=== PATIENT | female | born 1990 | race Caucasian/White ===

== ENCOUNTER 2017-10-07 11:13 | Emergency (ER) | END 2017-10-07 15:12 | disposition home or self-care (01) ==

== ENCOUNTER 2018-05-30 16:02 | Emergency (ER) | END 2018-05-30 19:18 | disposition home or self-care (01) ==

== ENCOUNTER 2018-08-28 09:47 | Outpatient (CLI) | END 2018-08-28 11:40 | disposition home or self-care (01) ==

== ENCOUNTER 2019-01-03 05:55 | Inpatient (IN) | payer OTHER ==
[2019-01-03] VITALS (9 sets, daily range): BP systolic 90–125; BP diastolic 46–64; PULSE 54–77; RESP 16–20; Ht 170.2 cm; Wt 122.3 kg
[~2019-01-03] VITALS: Ht 170.2 cm; Wt 122.3 kg
[~2019-01-03 05:55] MED LIST: CYCL10TA7 PO; IBUP-1542 PO; IBUP800T48 PO
[2019-01-03] MEDS ORDERED: LACTATED RINGER'S 1,000 ML IV SCH (06:06)
[2019-01-03] MEDS ORDERED: PREN-93 PO (06:11)
[2019-01-03] MEDS ORDERED: CEFAZOLIN 3 GM in DEXTROSE 5% 100 ML IV SCH (06:30)
[2019-01-03] MEDS ORDERED: MISOPROSTOL 200 MCG TAB PR PRN ×2 (06:30→13:00)
[2019-01-03] MEDS ORDERED: CARBOPROST 250 MCG INJ IM PRN ×2 (06:30→13:00)
[2019-01-03] MEDS ORDERED: OXYTOCIN 30 UNITS/LR 500 ML IV PRN ×2 (06:30→13:00)
[2019-01-03] MEDS ORDERED: METHYLERGONOVINE 0.2 MG INJ IM PRN ×2 (06:30→13:00)
[2019-01-03] MEDS ORDERED: OXYTOCIN 30 UNITS/LR 500 ML IV SCH ×2 (06:30→12:35)
--- NOTE | 2019-01-03 08:38 | PREAC ---
Date/Time of Note Date/Time of Note DATE: 01/03/19 TIME: 08:36 Anesthesia Eval and Record Evaluation Time Pre-Procedure Interview DATE: 01/03/19 TIME: 08:36 Age 28 Sex female NPO: 8 hrs Preoperative diagnosis iup at 39 weeks Planned procedure repeat c section Past Medical History Past Medical History: Includes GI: Obesity Heme: Anemia Surgery & Anesthesia Issues No known issue Meds Anticoagulation: No Beta Gilbert within 24 hr: No Reason Beta Gilbert not given: Pt. not on B-Gilbert Active Scripts Ibuprofen* (Motrin*) 600 Mg Tab, 600 MG PO Q6, #20 TAB Prov:SINTIA TAVARES PA-C 10/07/17 Cyclobenzaprine Hcl* (Cyclobenzaprine Hcl*) 10 Mg Tablet, 10 MG PO TID, #15 TAB Prov:ROCIO AHMADI PA-C 06/15/16 Ibuprofen* (Motrin*) 800 Mg Tab, 800 MG PO Q6, #30 TAB take with food Prov:ROCIO AHMADI PA-C 06/15/16 Reported Medications Vit No.124/Iron/FA ( Vitamin Tablet) 1 Each Tablet, 1 EACH PO, TAB 01/03/19 Current Medications Lactated Ringer's 1,000 ml @ 125 mls/hr Q8H IV Last administered on 01/03/19at 08:02; Admin Dose 125 MLS/HR; Start 01/03/19 at 06:06 Cefazolin Sodium 3 gm/Dextrose 100 ml @ 100 mls/hr ONCE IV ; Start 01/03/19 at 06:30 Oxytocin/Lactated Ringer's 500 ml @ 125 mls/hr POST IV ; Start 01/03/19 at 06:30 Oxytocin/Lactated Ringer's 500 ml @ 0 mls/hr ONCE PRN IV .VAGINAL BLEEDING; S tart 01/03/19 at 06:30 Methylergonovine Maleate (Methergine) 0.2 mg ONCE PRN IM .VAGINAL BLEEDING; St art 01/03/19 at 06:30 Carboprost Tromethamine (Hemabate) 250 mcg ONCE PRN IM .VAGINAL BLEEDING; Start 01/03/19 at 06:30 Misoprostol (Cytotec) 1,000 mcg ONCE PRN W[place] .VAGINAL BLEEDING; Start 01/03/19 at 06:30 Meds reviewed: Yes Allergies Coded Allergies: No Known Drug Allergies (Unverified Allergy, Unknown, 10/07/17) Allergies Reviewed: Yes Labs/Studies Labs Reviewed: Reviewed by anesthesiologist Result Diagram: 01/03/19 0640 Laboratory Tests 01/03/19 06:40 Blood Bank Test 01/03/19 06:40 Antibody Screen NEGATIVE Blood Type O POSITIVE Rh Immune Globulin Candidate NO test: Positive Pre-procedure Exam Last vitals Vital Signs Date Temp Pulse Resp B/P (MAP) Pulse Ox O2 O2 Flow FiO2 Time Delivery Rate 01/03/19 98.1 77 20 125/64 Room Air 06:32 (84) Airway: Adequate mouth opening, Adequate thyromental dist Mallampati: Mallampati II Teeth: Normal Lung: Normal Heart: Normal ASA Physical Status ASA physical status: 2 Emergency: None Planned Anesthetic Neuraxial: Spinal Planned Pain Management Sub-arachniod narcotics Pre-operative Attestations Prior to commencing anesthesia and surgery, the patient was re-evaluated, there was verification of: *The patient's identity *The results of appropriate recent lab work and preoperative vital signs *The above evaluation not changing prior to induction *Anesthetic plan, risk benefits, alternative and complications discussed with patient/family; questions answered; patient/family understands, accepts and wishes to proceed. WILLIAM ALEGRIA Jan 03, 2019 08:38
[2019-01-03] MEDS ORDERED: morphine SULFATE/PF (10 MG/10 ML) INJ ONE (08:39)
[2019-01-03] MEDS ORDERED: FENTAnyl 50 MCG/ML VIAL ONE (08:39)
--- NOTE | 2019-01-03 08:41 | HP ---
Date/Time of Note Date/Time of Note DATE: 01/03/19 TIME: 08:38 OB - History Hx of Present Free Text/Dictation 28 years old with single intrauterine at 39 weeks and 1 days with previous delivery desires repeat delivery. She states good movement. She denies nausea, vomiting, shortness of breath, chest pain, headache, visual changes, vaginal bleeding or LOF. Chief Complaint: Scheduled for repeat delivery Estimated Due Date: Jan 09, 2019 : 6 Para: 2 Spontaneous : 3 Therapeutic : 0 Care: Good Care Ultrasounds: Normal mid trimester US Obstetrical Complications: None Medical Complications: None Past Family/Social History * Past Medical, Surgical, Family and Obstetric Histories reviewed from chart. Blood Type: O+ Rubella: immune RPR/VDRL: Negative GBS Status: Positive HBsAG: Negative OB Admission Exam Vital Signs Vital Signs Vital Signs Date Temp Pulse Resp B/P (MAP) Pulse Ox O2 O2 Flow FiO2 Time Delivery Rate 01/03/19 98.1 77 20 125/64 Room Air 06:32 (84) Physical Exam HEENT: WNL Heart: Rhythm Normal Lungs: Clear Abdomen: WNL Extremities: Normal Membranes: Intact Heart Rate: 130's Accelerations: Accelerations Present Decelerations: No Decelerations Varibility: Moderate Contractions on Admission: None Last 72 hours Lab Results CBC & BMP 01/03/19 06:40 OB Assessment/Plan Other plan: 28 years old with single intrauterine at 39 weeks and 1 day and previous delivery desires repeat delivery.- FHR: No sign of metabolic acidosis- Category I - Continuous EFM, toco - CBC, blood type and screen - Please see the orders - O+/Rubella: Immune - GBS: Positive 2) Obesity BMI of 42.2: Increased risk of wound infection, deep vein thrombosis at and pulmonary emboli discussed in detail with patient. She expressed understanding. The risk of delivery including but not limited to bleeding, infection, injury to other organs (bowel, bladder, ureter, vessels, nerves), injury to fetus, blood transfusion, blood transfusion related infection, risk of anesthesia, adhesion, needs for future , removal of uterus or any other indicated surgery was discussed with the patient and her family. She expressed understanding. All of her questions were answered. She signed the informed consent. PHYSICIAN'S VERIFICATION OF INFORMED CONSENT The patient and her counseled regarding the procedure, its indications, risks, potential complications and alternatives and any questions were answered. Consent was obtained. PLANNED PROCEDURE/TREATMENT: delivery with possible using vacuum/f orceps and any other indicated surgery PHYSICIAN'S VERIFICATION OF INFORMED CONSENT FOR BLOOD TRANSFUSION: There is a reasonable possibility that blood transfusion will be necessary as a result of t he patient's procedure. I have discussed the following with the patient/patient's legal construction representative: An explanation of the benefits and risks of the transfusion of blood or blood products and the possible alternatives. All questions have been answered to the patient's satisfaction. INFORMED CONSENT:The patient has been informed of: The nature of the proposed care, treatment, services, medications, interventions or procedures. Potential benefits, risks or side effects, including potential problems related to recuperation. The likelihood of achieving care treatment and service goals. Reasonable alternatives to the proposed care, treatment and service. The relevant risks, benefits and side effects related to alternatives, including the possible results of not receiving care, treatment and services. When indicated, any limitations on the confidentiality of information learned from or about the patient. If appropriate, the risks, benefits and alternatives of the drugs to be used for sedation/analgesia including moderate sedation. If appropriate, patient has been provided information on the risks, benefits and alternatives to the transfusion of blood and/or blood products. If appropriate, patient has been provided information regarding the [place]ter [place] Blood Act. BLAKE RENTERIA Jan 03, 2019 08:41
[2019-01-03] MEDS ORDERED: PHENYLephrine 10 MG INJ ONE (08:49)
[2019-01-03] MEDS ORDERED: DEXAMETHASONE 4 MG/ML 1 ML INJ ONE (08:53)
[2019-01-03] MEDS ORDERED: ONDANSETRON 4 MG INJ ONE (08:54)
[2019-01-03] MEDS ORDERED: OXYTOCIN 30 UNITS/LR 500 ML IV ONE (09:37)
[2019-01-03] MEDS ORDERED: ONDANSETRON 4 MG INJ IV PRN (10:00)
[2019-01-03] MEDS ORDERED: NALOXONE (0.4 MG/ML) INJ IV PRN (10:00)
[2019-01-03] MEDS ORDERED: KETOROLAC 30 MG INJ IV PRN (10:00)
[2019-01-03] MEDS ORDERED: ZOLPIDEM 5 MG TAB PO PRN (10:00)
[2019-01-03] MEDS ORDERED: DIPHENHYDRAMINE 50 MG INJ IV PRN (10:00)
[2019-01-03] MEDS ORDERED: HYDROmorphONE 0.5 MG/0.5 ML SYG IV PRN ×2 (10:00)
--- NOTE | 2019-01-03 10:06 | OPR ---
Operative Report Planned Procedure Procedure date Jan 03, 2019 Procedure(s) Repeat low transverse delivery Performed by see signature line Enrollment Eligibility Representative: RUFINO JACOB M.D. Anesthesiologist: WILLIAM ALEGRIA Pre-procedure diagnosis 28 years old with single intrauterine at 39 weeks and 1 days with previous delivery desires repeat delivery. [id number] Anesthesia Type: Sdpyu0r spinal Post-Procedure Post-procedure diagnosis 28 years old with single intrauterine at 39 weeks and 1 days with previous delivery desires repeat delivery. Findings 1. Normal uterus, fallopian tubes and ovaries 2. Viable male in cephalic presentation. 8 at one minute and 9 in 5 minutes. Weight: 9 pounds 1 ounces - 4100 g. Height 21 inches. Time of delivery: 09:18 3. Placenta with three vessel cord 4. Amniotic fluid - Clear Estimated Blood Loss: 600 - 700 mls Specimen(s) none Grafts/Implant(s) none Complication(s) none Disposition: PACU Procedure Description INDICATION AND HISTORY: A 28 years old with single intrauterine at 39 weeks and 1 days with previous delivery desires repeat delivery. The risk of delivery including but not limited to bleeding, infection, injury to other organs (bowel, bladder, ureter, vessels, nerves), injury to babytus, blood transfusion, blood transfusion related infection, risk of anesthesia, adhesion, needs for future , removal of uterus or any other indicated surgery was discussed with the patient and her family. She expressed understanding. All of her questions were answered. She signed the informed consent. DESCRIPTION OF OPERATION: The patient was taken to the operating room, where she was identified and the procedure was verified. The patient received three gram of Ancef 30 minutes prior to surgery. Spinal anesthesia was placed. The patient placed in the dorsal supine position with a left tilt. The heart rate was 134 bpm. The patient was then prepped and draped in the normal sterile fashion. A Pfannenstiel skin incision was made and carried down to the fascia with Bovie. The fascia was incised in the midline and the fascial incision was carried laterally with Bovie. The superior portion of the fascial incision was then grasped with Maria Guadalupe clamps and tented up and dissected off the underlying rectus muscle with sharp dissection. The lower portion of the fascial incision was then made in a similar fashion. The rectus muscle was and the periton eum was entered. The peritoneal incision was then stretched and an Humberto retractor was inserted. Then, an incision was made in the lower uterine segment in a transverse fashion with a knife and extended bluntly. The was delivered atraumatically in cephalic presentation with the above findings. The umbilical cord was clamped and cut. The neonatology resuscitation team was present and the baby was handed to them. A cord blood sample was obtained for further evaluation. The placenta and membrane, which appeared normal were Removed. The uterus was exteriorized and cleared of all clot and debris. The uterus was then closed in a two layer fashion with 0-Monocryl. At the time of closure, hemostasis was noted. The gutters were irrigated. The peritoneum was reapproximated with 3-0 *Vicryl. The muscle was reapproximated with 3-0 Vicryl. The fascia was approximated with 0-Vicryl in a running fashion. The subcutaneous tissue was re approximated with 3-0 vicryl in 2 layer. The skin was closed with 4-0 Monocryl. All instruments, sponges and needle counts were correct x3. The patient tolerated the procedure well. She transferred to the recovery room in stable condition. BLAKE RENTERIA Jan 03, 2019 10:05
--- NOTE | 2019-01-03 11:39 | PAC ---
Date/Time of Note Date/Time of Note DATE: 01/03/19 TIME: 11:39 Post-Anesthesia Notes Post-Anesthesia Note Last documented vital signs Vital Signs Date Temp Pulse Resp B/P (MAP) Pulse Ox O2 O2 Flow FiO2 Time Delivery Rate 01/03/19 98.1 77 20 125/64 Room Air 1139 (84) Activity: WNL Respiratory function: WNL Cardiovascular function: WNL Mental status: Baseline Pain reasonably controlled: Yes Hydration appropriate: Yes Nausea/Vomiting absent: Yes WILLIAM ALEGRIA Jan 03, 2019 11:39
[2019-01-03] MEDS: DEXTROSE 5%-LR 1,000 ML IV SCH ×2 (12:35→23:53)
[2019-01-03] MEDS ORDERED: METHYLERGONOVINE 0.2 MG TAB PO PRN (13:00)
[2019-01-03] MEDS ORDERED: LANOLIN HPA 1 PKT TOP PRN (13:00)
[2019-01-03] MEDS ORDERED: MAGNESIUM HYDROXIDE 30ML CUP PO PRN (13:00)
[2019-01-03] MEDS: IBUPROFEN 800 MG TAB PO SCH ×2 (14:00→22:00)
[2019-01-03] MEDS: CEFAZOLIN 2 GM/50 ML (PMX) 50 ML IVPB SCH ×2 (15:01→23:01)
[2019-01-03] MEDS: SENNA/DOCUSATE NA (8.6MG/50MG) TAB PO SCH (21:28)
[2019-01-04 00:30] VITALS: BP 95/52; PULSE 65
[2019-01-04 03:10] VITALS: BP 96/50; PULSE 69; RESP 19
[2019-01-04] MEDS: DEXTROSE 5%-LR 1,000 ML IV SCH (04:35)
[2019-01-04] MEDS: CEFAZOLIN 2 GM/50 ML (PMX) 50 ML IVPB SCH (05:53)
[2019-01-04] MEDS: IBUPROFEN 800 MG TAB PO SCH ×3 (06:00→21:17)
[2019-01-04 09:00] VITALS: BP 99/54; PULSE 70; RESP 17
[2019-01-04] MEDS: SENNA/DOCUSATE NA (8.6MG/50MG) TAB PO SCH ×2 (10:09→21:16)
[2019-01-04] MEDS ORDERED: HYDROCODONE/APAP (5/325) TAB NGT PRN (11:00)
[2019-01-04] MEDS ORDERED: DIPHTH/TET/ACEL PERTUSS (ADULT) 0.5 ML VIAL IM* ONE (11:00)
[2019-01-04] MEDS: HYDROCODONE/APAP (5/325) TAB GTB SCH ×2 (13:24→21:17)
[2019-01-04 15:50] VITALS: BP 100/54; PULSE 73; RESP 16
--- NOTE | 2019-01-04 18:21 | PN ---
Date/Time of Note Date/Time of Note DATE: 01/04/19 TIME: 18:19 OB Subjective Subjective Subjective POD#1 Patient is doing well. She denies nausea, vomiting, shortness of breath, chest pain, headache. She has been ambulating without difficulty, tolerating regular diet. Pain is well controlled on current medications OB Objective Objective Objective Vital Signs Date Temp Pulse Resp B/P (MAP) Pulse Ox O2 O2 Flow FiO2 Time Delivery Rate 01/04/19 98.0 73 16 100/54 Room Air 15:50 (69) 01/04/19 98 09:00 General: AAO X 3, comfortable, NAD, appropriate mood and affect. Heart: RRR +S1, +S2, no murmurs. Lungs: Clear to auscultation (B/L), no rales, rhonchi or wheezing. ABD: +BS. Soft, non-tender. Uterus 2 cm below umbilicus Incision: Clear, dry, intact. No erythema, drainage or induration. Flank: No CVA tenderness (B/L) LE: Mild edema. No clubbing, cyanosis, thigh or calf tenderness (B/L). Homans 'sign is negative Laboratory Tests Test 01/03/19 06:40 01/04/19 06:32 01/04/19 08:06 White Blood Count 10.6 10^3/ul 10.0 10^3/ul Red Blood Count 4.07 10^6/ul 3.38 10^6/ul Hemoglobin 10.8 g/dl 9.1 g/dl Hematocrit 34.4 % 28.8 % Mean Corpuscular Volume 84.5 fl 85.2 fl Mean Corpuscular 26.5 pg 26.9 pg Hemoglobin Mean Corpuscular 31.4 g/dl 31.6 g/dl Hemoglobin Concent Red Cell Distribution 16.5 % 16.5 % Width Platelet Count 306 10^3/UL 297 10^3/UL Mean Platelet Volume 9.5 fl 10.0 fl Immature Granulocytes % 0.700 % 0.700 % Neutrophils % 73.7 % 68.3 % Lymphocytes % 17.9 % 22.0 % Monocytes % 5.1 % 7.5 % Eosinophils % 2.4 % 1.3 % Basophils % 0.2 % 0.2 % Nucleated Red Blood Cells 0.0 /100WBC 0.0 /100WBC % Immature Granulocytes # 0.070 10^3/ul 0.070 10^3/ul Neutrophils # 7.8 10^3/ul 6.8 10^3/ul Lymphocytes # 1.9 10^3/ul 2.2 10^3/ul Monocytes # 0.5 10^3/ul 0.8 10^3/ul Eosinophils # 0.3 10^3/ul 0.1 10^3/ul Basophils # 0.0 10^3/ul 0.0 10^3/ul Nucleated Red Blood Cells 0.0 10^3/ul 0.0 10^3/ul # Prothrombin Time 13.9 Sec Prothrombin Time Ratio 1.1 INR International 1.06 Normalized Ratio Activated 25.3 Sec Partial Thromboplast Time Rapid Plasma Reagin NONREACTIVE Hepatitis B Surface NEGATIVE Antigen Lab Scanned Report [facility] [id number] OB Assessment/Plan Other plan: 38-year old 3 repeat s/p delivery at 39 weeks and 1 day POD#1 - AF, VSS - Baby is doing well, at bed side. She is bonding well - Contraception methods with R/B/A/FR discussed - Continue care 2) Anemia: Ferrous sulfate 325 mg twice daily for 3 months and continue vitamin BLAKE RENTERIA Jan 04, 2019 18:21
[2019-01-04 19:40] VITALS: BP 107/64; PULSE 73; RESP 16
[2019-01-05 03:50] VITALS: BP 117/69; PULSE 75; RESP 19
[2019-01-05] MEDS: HYDROCODONE/APAP (5/325) TAB GTB SCH (05:20)
[2019-01-05] MEDS: IBUPROFEN 800 MG TAB PO SCH ×3 (05:21→21:53)
[2019-01-05 08:15] VITALS: BP 115/57; PULSE 68; RESP 16
[2019-01-05] MEDS: SENNA/DOCUSATE NA (8.6MG/50MG) TAB PO SCH ×2 (08:39→21:52)
[2019-01-05] MEDS ORDERED: HYDROCODONE/APAP (5/325) TAB PO PRN (08:43)
--- NOTE | 2019-01-05 08:58 | OPPN ---
Date/Time of Note Date/Time of Note DATE: 01/05/19 TIME: 08:57 Anesthesia Follow up Anesthesia Follow up Last documented vital signs Vital Signs Date Temp Pulse Resp B/P (MAP) Pulse Ox O2 O2 Flow FiO2 Time Delivery Rate 01/05/19 98.1 75 19 117/69 Room Air 03:50 (85) 01/04/19 98 09:00 Respiratory function: WNL Cardiovascular function: WNL Comments no complications from intrathecal duramorph analgesia. satisfactory pain control WILLIAM ALEGRIA Jan 05, 2019 08:58
--- NOTE | 2019-01-05 12:18 | PN ---
Date/Time of Note Date/Time of Note DATE: 01/05/19 TIME: 12:14 OB Subjective Subjective Subjective Tolerated regular diet. Passed flatus. Ambulating without any symptom. Rest feeding. Denies any nausea vomiting. Pain well controlled with p.o. pain medication. Reports eczema of the right hand OB Objective Objective Objective Laboratory Tests Test 01/04/19 06:32 01/04/19 08:06 Lab Scanned Report [facility] [id number] White Blood Count 10.0 10^3/ul Red Blood Count 3.38 10^6/ul Hemoglobin 9.1 g/dl Hematocrit 28.8 % Mean Corpuscular Volume 85.2 fl Mean Corpuscular Hemoglobin 26.9 pg Mean Corpuscular Hemoglobin Concent 31.6 g/dl Red Cell Distribution Width 16.5 % Platelet Count 297 10^3/UL Mean Platelet Volume 10.0 fl Immature Granulocytes % 0.700 % Neutrophils % 68.3 % Lymphocytes % 22.0 % Monocytes % 7.5 % Eosinophils % 1.3 % Basophils % 0.2 % Nucleated Red Blood Cells % 0.0 /100WBC Immature Granulocytes # 0.070 10^3/ul Neutrophils # 6.8 10^3/ul Lymphocytes # 2.2 10^3/ul Monocytes # 0.8 10^3/ul Eosinophils # 0.1 10^3/ul Basophils # 0.0 10^3/ul Nucleated Red Blood Cells # 0.0 10^3/ul Appearance: Alert and oriented x4 does not appear to be in any acute distress. Morbidly obese. Abdomen: Soft, fundus firm and palpable below the umbilicus. Incision: Clean dry and intact. Appropriate tenderness and incision noted Breast: No evidence of mastitis or fissure Upper extremities. Severe eczema of the right hand noted Patient reports history of eczema in the past has been using hydrocortisone cream. Lower extremities: No calf tenderness, no click no cord palpable VS - Last 72 Hours, by Label Date Temp Pulse Resp B/P (MAP) Pulse Ox O2 O2 Flow FiO2 Time Delivery Rate 01/05/19 98.1 75 19 117/69 Room Air 03:50 (85) 01/04/19 98.0 73 16 107/64 Room Air 19:40 (78) 01/04/19 98.0 73 16 100/54 Room Air 15:50 (69) 01/04/19 98.7 70 17 99/54 (69) 98 Room Air 09:00 01/04/19 98.5 69 19 96/50 (65) Room Air 03:10 01/04/19 98.3 65 95/52 (66) 98 Room Air 00:30 01/03/19 98.1 55 18 105/55 96 Room Air 20:05 (72) 01/03/19 97.7 68 18 112/52 97 Room Air 15:50 (72) 01/03/19 97.9 61 18 103/57 Room Air 14:00 (72) 01/03/19 98.2 69 18 113/59 97 Room Air 12:45 (77) 01/03/19 54 18 98/50 (66) 97 Room Air 12:24 01/03/19 71 18 90/46 (61) 95 Room Air 12:09 01/03/19 55 16 107/46 96 Room Air 11:54 (66) 01/03/19 97.4 59 18 111/47 97 Room Air 11:39 (68) 01/03/19 98.1 77 20 125/64 Room Air 06:32 (84) OB Assessment/Plan Other Assessment: Status post Postoperative day #2 Doing well Anemia, asymptomatic, postop Recommended to take iron after discharge from the hospital with a stool softener Right hand eczema, advised to continue hydrocortisone cream as was using for eczema. Has a history of eczema with the same lesion in the past. Continue routine postoperative care SWATHI REILLY MD Jan 05, 2019 12:18
[2019-01-05] MEDS: HYDROCODONE/APAP (5/325) TAB PO SCH ×2 (14:35→21:53)
[2019-01-05 16:30] VITALS: BP 112/57; PULSE 70; RESP 18
[2019-01-05 21:45] VITALS: BP 110/55; PULSE 65; RESP 18
[2019-01-06 04:56] VITALS: BP 120/61; PULSE 61; RESP 18
[2019-01-06] MEDS: HYDROCODONE/APAP (5/325) TAB PO SCH ×2 (05:29→13:47)
[2019-01-06] MEDS: IBUPROFEN 800 MG TAB PO SCH ×2 (05:30→13:47)
[2019-01-06 08:00] VITALS: BP 112/56; PULSE 62; RESP 16
[2019-01-06] MEDS: SENNA/DOCUSATE NA (8.6MG/50MG) TAB PO SCH (08:51)
[2019-01-06] MEDS ORDERED: DIPHTH/TET/ACEL PERTUSS (ADULT) 0.5 ML VIAL IM* ONE (09:00)
[2019-01-06] MEDS ORDERED: MEASLES,MUMPS,RUBELLA VACCINE INJ SC* ONE (09:00)
--- NOTE | 2019-01-06 15:09 | DS ---
Date/Time of Note Date/Time of Note DATE: 01/06/19 TIME: 15:08 Obstetrical Discharge Record Final Diagnosis Final Diagnosis: Term delivered Section Section: Repeat Complications Augmentation: No Induction: No Rupture of Membranes: No Condition on Discharge Physical Assessment Last Vitals: VSS afebrile Voiding: Yes Bowel Movement: No Breast: Soft, non-tender Fundus: Firm Abdomen and Incision: abdomen soft wound dry Episiotomy: n/a Calf Tenderness: No Patient Condition: Stable IRENE BENITEZ MD Jan 06, 2019 15:09
--- NOTE | 2019-01-06 15:11 | PD.PPDC ---
[employer] Discharge Instruction Diagnosis [id number] Final Diagnosis: Yjtco6y s/p RC/S Condition [id number] Patient Condition: Ynpdn5i Stable Diet Hpfsd0Tu Diet: Udavg9f Resume Regular Diet Activity/Restrictions [id number] Activity: Ogome4t May Shower Affsh5Dk Restrictions: Uvnaq0y No Exercising No Lifting Minimize Stair-climbing No Sexual Activity Nothing in the Vagina No [place] No Tampons, douche Wound/Drain Care Instructions [id number] Wound/Drain Care Instructions: Viktf3j Wash with soap and water Keep clean and dry Follow-up Follow-up with Physician: 2, Week/Weeks Return to clinic for [id number] MANAGER FLORAL Instructions: Ftvdb4o Fever greater than 101 Chills Worsening abdominal pain Excessive Vaginal Bleeding More than 2 pads per hour Unable to tolerate diet [id number] OB Instructions: Qkdqi5z Breast Tenderness Depression Blurried Vision Headache Hebri3Op Surgical Instructions: Onpex8k Incisional Drainage Incisional Redness IRENE BENITEZ MD Jan 06, 2019 15:11
--- NOTE | 2019-01-07 18:44 | DELSUM ---
Delivery Summary A-C Datetime Report Generated by CPN: 01/07/2019 18:43 DELIVERY PERSONNEL Junior Legal Secretary: Roberta, Erica MATERNAL INFORMATION Delivery Anesthesia: Spinal Medications in Delivery: SEE ANESTHESIA RECORD Delivery QBL (ml): 700 Placenta Cultured: No Maternal Complications: None RN Comments: RN ORT TERA BUSCH RN LABOR SUMMARY EDC: 01/09/2019 00:00 No. Babies in Womb: 1 Attempted: No Labor Anesthesia: None LABOR INFORMATION Reason for Induction: Not Applicable Oxytocin: N/A Group B Beta Strep: Positive Antibiotics # of Doses: 1 Antibiotics Time of Last Dose: 01/03/2019 08:50 Steroids Given: None Reason Steroids Not Administered: Not Applicable MEMBRANES Membranes Rupture Method: Artificial Rupture of Membranes: 01/03/2019 09:17 Length of Rupture (hr): 0.02 Amniotic Fluid Color: Clear Amniotic Fluid Amount: Moderate Amniotic Fluid Odor: None STAGES OF LABOR Stage 3 hr: 0 Stage 3 min: 1 CSECTION DELIVERY Primary Indication: Repeat Elective CSection Urgency: Elective CSection Incidence: Repeat Labor: No Labor Elective: Elective CSection Incision: Lower Uterine Transverse BABY A INFORMATION Infant Delivery Date/Time: 01/03/2019 09:18 Method of Delivery: Born in Route : No : N/A Forceps: N/A Vacuum Extraction: N/A Shoulder Dystocia : N/A SHOULDER DYSTOCIA BABY A Delivery Date/Time: 01/03/2019 09:18 PRESENTATION/POSITION BABY A Presentation: Cephalic Cephalic Presentation: Vertex Vertex Position: Left Occipital Anterior Breech Presentation: N/A PLACENTA INFORMATION BABY A Placenta Delivery Time : 01/03/2019 09:19 Placenta Method of Delivery: Manual Removal Placenta Status: Delivered SCORES BABY A Heart Rate 1 min: >100 bpm Resp Effort 1 min: Good Cry Reflex Irritability 1 min: Cough/Sneeze/Pulls Away Muscle Tone 1 min: Active Motion Color 1 min: Blue/Pale Resuscitation Effort 1 min: Tactile Stimulation SCORE 1 MIN: 8 Heart Rate 5 min: >100 bpm Resp Effort 5 min: Good Cry Reflex Irritability 5 min: Cough/Sneeze/Pulls Away Muscle Tone 5 min: Active Motion Color 5 min: Body [place], Extremit Blue Resuscitation Effort 5 min: Tactile Stimulation SCORE 5 MIN: 9 INFANT INFORMATION BABY A Gestational Age at Delivery: 39.1 Gestational Status: Full Term- 39- 40.6 Weeks Infant Outcome : Liveborn Infant Condition : Stable Infant Sex: Male IDENTIFICATION/MEDS BABY A ID Band Number: [id number] ID Band Location: Right Leg; Left Arm Sensor Applied: Yes Sensor Number: [id number] Sensor Location : Cord Clamp Vitamin K Given : Left Thigh Erythromycin Given: Given Both Eyes WEIGHT/LENGTH BABY A Birthweight (gm): 4100 Weight (lb): 9 Weight (oz): 1 Length (in): 21.00 Length (cm): 53.34 CORD INFORMATION BABY A No. Cord Vessels: 3 Nuchal Cord : Around Neck x1, Loose Cord Blood Taken: Yes Infant Suction: Mouth; Nose ASSESSMENT BABY A Complications: None Physical Findings at Delivery: Within Normal Limits Respirations: Appears Normal Receiver Stocker/ALS Called : No
== END 2019-01-06 18:43 | disposition home or self-care (01) | DRG 788 ==
LOC: L-D 05:55 → PP1 12:40
PROVIDERS: ADMIT Obstetrics & Gynecology; ATTEND Obstetrics & Gynecology
PROC: 3E033VJ Introduction of Other Hormone into Peripheral Vein, Percutaneous Approach (ICD-10-PCS; 2019-01-03)
PROC: 10D00Z1 Extraction of Products of Conception, Low, Open Approach (ICD-10-PCS; principal; 2019-01-03 07:30)
DX: O65.5 Obstructed labor due to abnormality of maternal pelvic organs (principal); O34.211 Maternal care for low transverse scar from previous cesarean delivery; Z3A.39 39 weeks gestation of pregnancy; Z37.0 Single live birth
CPT/HCPCS: 85025; 85610; 85730; 86592; 86850; 86900; 86901; 87340; 90715; 99464; J0690; J1100; J1885; J2274; J2405; J2590; J3010; J7120; J7121